=== PATIENT | female | born 1965 | race African-American/Black ===

== ENCOUNTER 2016-04-04 01:38 | Emergency (ER) | payer BC, OTHER ==
[~2016-04-04] VITALS: Ht 162.6 cm; Wt 103.6 kg
[~2016-04-04 01:38] MED LIST: DAILY VITE1 EAC1 PO; GLUCOPHAGE500 MG PO; HYDROCHLOROTHIA25 MG PO; IRON325 M1 PO; NORCO 5/3251 TABLET PO; XARELTO20 MG PO
[2016-04-04] MEDS ORDERED: EPIPEN ADU0.3 MG/0.3 IM (02:30)
[2016-04-04 02:50] VITALS: BP 126/64
== END 2016-04-04 02:51 | disposition home or self-care (01) ==
LOC: EME 01:38
DX: T78.40XA Allergy, unspecified, initial encounter (principal); R06.00 Dyspnea, unspecified; E11.9 Type 2 diabetes mellitus without complications
CPT/HCPCS: 99281; 99284

== ENCOUNTER 2016-11-15 03:10 | Observation (INO) | payer BC ==
[~2016-11-15] VITALS: Ht 163.8 cm; Wt 103.4 kg
[~2016-11-15 03:10] MED LIST changes: +EPIPEN ADU0.3 MG/0.3 IM
[2016-11-15 03:47] LABS: HEMATOCRIT 35.5 % (36.0-46.0); MCH 29.1 PG (29.0-34.0); MCHC 32.7 G/DL (30.0-36.0); MCV 89.2 FL (83-99); MEAN PLAT.VOLUME 9.2 uM^3 (9.5-12.4); PLATELET COUNT 177 K/uL (156-360); RBC DIS.WIDTH-CV 12.8 % (11.8-14.6); RBC DIS.WIDTH-SD 41.8 % (39-53); RED BLOOD COUNT 3.98 M/uL (3.80-5.20); WHITE BLOOD COUNT 2.9 K/uL (4.1-10.2)
[2016-11-15 03:52] LABS: INTER. NORMALIZED RATIO 1.6; PROTHROMBIN TIME 17.7 SEC (10.2-12.9)
[2016-11-15 03:54] LABS: D-DIMER ELISA < 150.00 ng/mLDDU (<230)
[2016-11-15 04:04] LABS: CHLORIDE 104 mEq/L (99-109); POTASSIUM 3.2 mEq/L (3.7-5.4); SODIUM 142 mEq/L (136-147)
[2016-11-15 04:08] LABS: ANION GAP 9 MEQ/L (2-14)
[2016-11-15 04:09] LABS: TROP-I INTERPRETATION NEGATIVE; TROPONIN-I < 0.01 ng/mL (0.0-0.30)
[2016-11-15 04:10] LABS: GFR ESTIMATE (CALCULATED) > 59 mL/min/
[2016-11-15 04:11] LABS: UREA NITROGEN (BUN) 20 mg/dL (9-23)
[2016-11-15 04:13] LABS: GLUCOSE 30 mg/dL (70-99)
[2016-11-15 04:29] LABS: POINT-OF-CARE METER ID UU13113702
[2016-11-15] MEDS ORDERED: ACETAMINOPHEN-1 EAC1 PO (05:31)
[2016-11-15 05:46] LABS: POINT-OF-CARE METER ID UU13113702
[2016-11-15 08:06] VITALS: BP 106/60
[2016-11-15 08:14] LABS: POINT-OF-CARE METER ID UU13113700
[2016-11-15 08:46] LABS: POINT-OF-CARE METER ID UU13113700
[2016-11-15 09:10] LABS: POINT-OF-CARE METER ID UU13113700
[2016-11-15 11:26] VITALS: BP 111/56
[2016-11-15 12:19] LABS: TROP-I INTERPRETATION NEGATIVE; TROPONIN-I < 0.01 ng/mL (0.0-0.30)
[2016-11-15 12:23] LABS: POINT-OF-CARE METER ID UU13113700
[2016-11-15] MEDS ORDERED: AROMASIN25 MG PO (13:24)
[2016-11-15 16:50] VITALS: BP 98/61
[2016-11-15 17:39] LABS: POINT-OF-CARE METER ID UU13113700
[2016-11-15 17:41] LABS: TROP-I INTERPRETATION NEGATIVE; TROPONIN-I < 0.01 ng/mL (0.0-0.30)
[2016-11-15 19:14] LABS: Estimated Average Glucose 108 mg/dL (70-123); HEMOGLOBIN A1c (GLYCOHEMOGLOB) 5.4 % HGB (Below 5.7)
== END 2016-11-15 18:48 | disposition home or self-care (01) ==
LOC: EME → EDBD 03:10 → EME 03:10 → EDOF 05:33 → 5WEST 05:33 → EDOF 05:33 → ENRESERV 05:36 → 5WEST 07:48
PROVIDERS: Hospitalist; Nurse Practitioner Adult Health; Physician Assistant
DX: R07.9 Chest pain, unspecified (principal); Z86.711 Personal history of pulmonary embolism; Z79.01 Long term (current) use of anticoagulants; E11.9 Type 2 diabetes mellitus without complications; R94.31 Abnormal electrocardiogram [ECG] [EKG]; I10 Essential (primary) hypertension; K21.9 Gastro-esophageal reflux disease without esophagitis; Z85.3 Personal history of malignant neoplasm of breast; D64.9 Anemia, unspecified; Z82.49 Family history of ischemic heart disease and other diseases of the circulatory system; Z82.3 Family history of stroke; Z79.84 Long term (current) use of oral hypoglycemic drugs
CPT/HCPCS: 71020; 71275; 80048; 82948; 83036; 84484; 85027; 85379; 85610; 93005; 99281; 99284; G0378; J7030

== ENCOUNTER 2016-12-16 10:04 | Day surgery (SDC) | payer BC ==
[~2016-12-16] VITALS: Ht 163.8 cm; Wt 90.7 kg
[~2016-12-16 10:04] MED LIST changes: +ACETAMINOPHEN-1 EAC1 PO; +AROMASIN25 MG PO; +FERROUS SULFAT325 MG PO; +MULTIPLE VITAM1 EACH PO; +PANTOPRAZOLE SO40 MG PO; +TYLENOL WITH C1 EACH PO; +XARELTO10 MG PO
[2016-12-16] MEDS ORDERED: ASPIR 8181 M1 PO (10:29)
[2016-12-16 10:42] LABS: POINT-OF-CARE METER ID UU13113696; POINT-OF-CARE USER ID RADBHB79
[2016-12-16 11:55] LABS: POINT-OF-CARE METER ID UU13113696
== END 2016-12-16 17:25 | disposition home or self-care (01) ==
LOC: CATH 10:04
PROVIDERS: Internal Medicine Interventional Cardiology
DX: I34.0 Nonrheumatic mitral (valve) insufficiency (principal); R07.89 Other chest pain; I10 Essential (primary) hypertension; E11.9 Type 2 diabetes mellitus without complications; E66.9 Obesity, unspecified; Z68.33 Body mass index [BMI] 33.0-33.9, adult; Z98.84 Bariatric surgery status; Z85.3 Personal history of malignant neoplasm of breast
CPT/HCPCS: 82948; C1769; C1887; J1644; J2250; J3010